=== PATIENT | male | born 1980 | race Caucasian/White ===

== ENCOUNTER 2022-08-23 20:19 | Emergency (ER) | payer BC ==
[2022-08-23 20:28] VITALS: BP 136/90
[2022-08-23] MEDS ORDERED: TETANUS/DIPHTHERIA/PERTUSSIS 0.5 ML SYRINGE IM ONE (20:33)
--- NOTE | 2022-08-23 21:08 | ED Physician Documentation ---
PD HPI UPPER EXT INJURY - Stated complaint Stated Complaint: LFT HAND INJURY - Chief complaint Chief Complaint: Laceration - History obtained from History obtained from: Patient - Additonal information Additional information: Patient is a 42-year-old male presenting for evaluation of laceration to his left hand that occurred just prior to arrival. Patient is visiting the area from [place] and is trailer camping at [employer] [facility]. He was trying to cut a tie and says he used a kitchen knife and accidentally cut his hand. He does not take a blood thinner. He is unsure of his last tetanus. Review of Systems Constitutional: denies: Fever Cardiac: denies: Chest pain / pressure Respiratory: denies: Dyspnea GI: denies: Abdominal Pain Skin: reports: Laceration (s) Musculoskeletal: denies: Extremity pain PD PAST MEDICAL HISTORY - Present Medications Home Medications: Ambulatory Orders Medication Instructions Recorded Confirmed No Known Home Medications 08/23/22 08/23/22 - Allergies Allergies/Adverse Reactions: Allergies Allergy/AdvReac Type Severity Reaction Status Date / Time No Known Drug Allergies Allergy Verified 08/23/22 20:28 PD ED PE NORMAL - General General: Alert and oriented X 3, No acute distress, Well developed/nourished - HEENT HEENT: Atraumatic - Neck Neck: Supple, no meningeal sign - Cardiac Cardiac: Strong equal pulses - Respiratory Respiratory: No respiratory distress - Extremities Extremities: Normal ROM s pain, Other (2 cm laceration to medial L hand) - Neuro Neuro: No motor deficit, No sensory deficit PD ED PE EXPANDED - Extremities CARMELLA UE/Hands Visual: 1 - laceration Results - Vitals Vitals: Vital Signs - 24 hr 08/23/22 20:24 Temperature 36.7 C Heart Rate 84 Respiratory 15 Rate Blood Pressure 136/90 H O2 Saturation 100 Oxygen O2 Source Room air Procedures - Laceration (location) L hand Length in cm: 2 Wound type: Linear, Flap, Clean Neurovascular status: Sensory intact, Motor intact, Vascular intact Tendon involvement: Tendon intact Anesthesia: Lidocaine 1% Wound preparation: Hibiclens, Irrigated copiously NS Skin layer closure: Size #-0 - enter number (4), Sutures - enter # (6) Other: Patient tolerated well, No complications, Neurovascular intact, Dressing applied, Tetanus booster given PD Medical Decision Making - ED course ED course: Patient presenting for evaluation of a laceration to his left hand. No concerns for foreign body. He was given a tetanus booster.Laceration site is clean and he has normal range of motion at all joints. No signs of neurovascular injury. Wound was cleaned and sutured. A dressing was placed. Patient is counseled on continued wound care as well as need to return for suture removal. He is advised on concerning symptoms to return for. Departure - Departure Disposition: 01 Home, Self Care Clinical Impression: Laceration of left hand Condition: Stable Instructions: ED Laceration Hand Comments: You have 6 stitches that were placed into your left hand. Please keep the dressing that we have placed on for the next day. After that you can remove the dressing But continue to keep the wound clean and dry. I would recommend covering the wound if you are outside doing any outdoor activities. The stitches should stay in for approximately 7 to 10 days. Please return to an emergency department or walk-in clinic to have them removed. You were given a tetanus booster today. Return to the ER with any concerns such as signs of infection or worsening bleeding. Discharge Date/Time: 08/23/22 21:26
== END 2022-08-23 21:26 | disposition home or self-care (01) ==
LOC: ED 20:19
DX: S61.412A Laceration without foreign body of left hand, initial encounter (principal); W26.0XXA Contact with knife, initial encounter; Z23 Encounter for immunization; Z71.85 Encounter for immunization safety counseling
CPT/HCPCS: 12001; 90471; 99283